=== PATIENT | female | born 1990 | race Caucasian/White ===

== ENCOUNTER 2018-01-18 12:41 | Inpatient (IN) | payer BC ==
[~2018-01-18] VITALS: Ht 165.1 cm; Wt 86.8 kg
[2018-02-21] VITALS (20 sets, daily range): BP systolic 91–128; BP diastolic 46–77; PULSE 60–95; TEMP 97.7–98.8
[2018-02-21 06:45] LABS: BASO % 0.4 % (0.0-2.0); EOS # 0.2 (0.0-0.7); EOS % 2.3 % (0-4.0); GRAN # 5.7 (1.4-6.5); GRAN % 61.8 % (42.2-75.2); HEMOGLOBIN 12.3 g/dl (12.5-16.0); LYMPH # 2.6 (1.2-3.4); LYMPH % 27.9 % (20.0-51.0); MEAN CELL VOLUME 92 fl (80.0-100.0); MEAN CORPUSCULAR HEMOGLOBIN 31 pg (27.0-31.0); MEAN CORPUSCULAR HGB CONC 34 g/dl (33.0-37.0); MEAN PLATELET VOLUME 11.4 fl (7.4-10.4); MONO # 0.7 (0.1-0.6); MONO % 7.1 % (1.7-9.3); PLATELET COUNT 215 K/mm3 (130-400); RED BLOOD COUNT 3.94 M/mm3 (4.10-5.30); REDCELL DISTRIBUTION WIDTH-CV 13.5 % (11.5-14.5)
[2018-02-21 06:54] LABS: HEMATOCRIT 36.1 % (37.0-47.0)
[2018-02-21] MEDS ORDERED: PRENATAL1 TA7 PO (07:01)
[2018-02-21] MEDS ORDERED: CALCIUM PLUS1 TA1 PO (07:02)
[2018-02-21] MEDS ORDERED: SLOW FE142 MG PO (07:04)
[2018-02-21] MEDS ORDERED: MOTRIN 800800 MG/TAB PO (18:41)
[2018-02-21] MEDS ORDERED: PERCOCET 325 MG1 TA2 PO (18:41)
[2018-02-22 06:30] VITALS: BP 116/65; PULSE 84; TEMP 98
[2018-02-22 16:30] VITALS: BP 109/65; PULSE 84; TEMP 98.2
[2018-02-22 21:00] VITALS: BP 124/87; PULSE 92; TEMP 98.1
[2018-02-23 03:00] VITALS: BP 120/80; PULSE 96; TEMP 98
[2018-02-23 08:45] VITALS: BP 135/72; PULSE 93; TEMP 98.1
== END 2018-02-23 11:35 | disposition home or self-care (01) | DRG 765 ==
LOC: LDRO 12:41 → EDSTATUS 14:21 → OB 02-21 05:39 → LDR 02-21 14:22 → OB 02-23 11:35
PROVIDERS: Student in an Organized Health Care Education/Training Program
PROC: 10D00Z1 Extraction of Products of Conception, Low, Open Approach (ICD-10-PCS; principal; 2018-02-21)
DX: O32.1XX0 Maternal care for breech presentation, not applicable or unspecified (principal); O22.43 Hemorrhoids in pregnancy, third trimester; Z3A.39 39 weeks gestation of pregnancy; O99.02 Anemia complicating childbirth; D64.9 Anemia, unspecified; Z37.0 Single live birth; Z88.0 Allergy status to penicillin
CPT/HCPCS: J0171; J0690; J1885; J2270; J2370; J2405; J2550; J2590; J7120

== ENCOUNTER 2020-01-20 08:46 | Inpatient (IN) | payer BC ==
[~2020-01-20] VITALS: Ht 165.1 cm; Wt 87.3 kg
[~2020-01-20 08:46] MED LIST: CALCIUM PLUS1 TA1 PO; MOTRIN 800800 MG/TAB PO; PERCOCET 325 MG1 TA2 PO; PRENATAL1 TA7 PO; SLOW FE142 MG PO
[2020-01-27] VITALS (19 sets, daily range): BP systolic 94–128; BP diastolic 58–86; PULSE 56–89; TEMP 97.5–98.3
--- NOTE | 2020-01-27 05:40 | NUR ---
Pt arrived to unit ambulatory for scheduled section. Pt oriented to room, call light within reach, bed in low and locked position. Pt reports feeling good movement, denies feeling contractions, denies vaginal bleeding, and denies LOF. US and toco explained and applied. Vital signs obtained. 0550 - IV started in left forearm with 1 attempt. Admission labs obtained off IV start. Lactated Ringers infusing to gravity. 0600 - Consents reviewed and signed with patient and spouse.
[2020-01-27 06:31] LABS: BASO % 0.3 % (0.0-2.0); EOS # 0.2 (0.0-0.7); EOS % 2.3 % (0-4.0); GRAN # 4.5 (1.4-6.5); GRAN % 57.9 % (42.2-75.2); HEMOGLOBIN 12.9 g/dl (12.5-16.0); LYMPH # 2.5 (1.2-3.4); LYMPH % 31.6 % (20.0-51.0); MEAN CELL VOLUME 94 fl (80.0-100.0); MEAN CORPUSCULAR HEMOGLOBIN 32 pg (27.0-31.0); MEAN CORPUSCULAR HGB CONC 34 g/dl (33.0-37.0); MEAN PLATELET VOLUME 11.3 fl (7.4-10.4); MONO # 0.6 (0.1-0.6); MONO % 7.5 % (1.7-9.3); PLATELET COUNT 201 K/mm3 (130-400); RED BLOOD COUNT 4.03 M/mm3 (4.10-5.30); REDCELL DISTRIBUTION WIDTH-CV 13.3 % (11.5-14.5)
--- NOTE | 2020-01-27 09:35 | NUR ---
Fundal massage and boggy uterus noted. baseball sized clot expressed followed by small amount of free flow. Fundus firm and no free flow noted following massage. Pericare provided. VS stable. patient sitting up in bed breastsfeeding infant.
[2020-01-28 08:00] VITALS: BP 216/80; PULSE 80; TEMP 98
[2020-01-28] MEDS ORDERED: IBU800 M1 PO (08:42)
[2020-01-28] MEDS ORDERED: PERCOCET 325 MG1 TA2 PO (08:43)
--- NOTE | 2020-01-28 10:05 | NUR ---
Initial visit attempt; Physician with patient, Security Strategist Security Strategist left card of congratulations for the of her daughter and information regarding the availability of spiritual care at [facility].
[2020-01-28 16:10] VITALS: BP 125/71; PULSE 92; TEMP 97.5
[2020-01-28 20:50] VITALS: BP 109/58; PULSE 88; TEMP 98.1
[2020-01-29 07:30] VITALS: BP 123/77; PULSE 84; TEMP 97.7
== END 2020-01-29 11:00 | disposition home or self-care (01) | DRG 788 ==
LOC: OB 01-27 05:31
PROVIDERS: ADMIT Student in an Organized Health Care Education/Training Program
PROC: 10D00Z1 Extraction of Products of Conception, Low, Open Approach (ICD-10-PCS; principal; 2020-01-27)
DX: O34.211 Maternal care for low transverse scar from previous cesarean delivery (principal); Z3A.40 40 weeks gestation of pregnancy; Z37.0 Single live birth; O48.0 Post-term pregnancy
CPT/HCPCS: J0690; J1100; J1885; J2370; J2405; J2590; J7120

== ENCOUNTER 2021-03-26 09:53 | Emergency (ER) | payer BC ==
[~2021-03-26] VITALS: Ht 167.6 cm; Wt 78.6 kg
[~2021-03-26 09:53] MED LIST changes: +IBU800 M1 PO
[2021-03-26 10:04] VITALS: TEMP 98.1
[2021-03-26 10:42] VITALS: BP 115/78; PULSE 76
== END 2021-03-26 10:43 | disposition home or self-care (01) ==
LOC: COL.ER 09:53
DX: O32.1XX0 Maternal care for breech presentation, not applicable or unspecified (principal); O34.82 Maternal care for other abnormalities of pelvic organs, second trimester; N83.209 Unspecified ovarian cyst, unspecified side; O26.892 Other specified pregnancy related conditions, second trimester; R10.31 Right lower quadrant pain; O99.512 Diseases of the respiratory system complicating pregnancy, second trimester; R06.00 Dyspnea, unspecified; Z88.0 Allergy status to penicillin; Z3A.26 26 weeks gestation of pregnancy

== ENCOUNTER 2021-07-08 19:27 | Outpatient (CLI) | payer BC ==
[~2021-07-08] VITALS: Ht 165.1 cm; Wt 83.2 kg
--- NOTE | 2021-07-08 19:45 | NUR ---
1944- patient wheeled onto unit with by her side holding . patient comes from mixing machine feeder, emmett delivery at approximately 1730 with a suspected 3rd degree that needs repair and increased bleeding due to patient unable to void. patient voided in the bathroom upon arrival. patient and spouse orientated to room and changed into clean gown. patient assessment and vitals completed and consents signed. Dr. Zapien notified of patient's arrival. 1954- Dr. Zapien to bedside for repair. Patient and bed set up for repair and repairs began. Dr Zapien noted that the patient at a second degree tear with some small lacerations near the anus. 2014- Repairs finished. Vitals stable, fundus firm. Patient and bed cleaned up and put back together. Ice, peripad and new chux under patient. Dr. Zapien advised ice, 600mg ibuprofen now and recovery for 1 hour and if everything looks good, then patient can go home. Patient and this nurse verbalized understanding with no further questions. 1 hour recovery started.
[2021-07-08 20:15] VITALS: BP 118/73; PULSE 142; TEMP 98.2
[2021-07-08 20:30] VITALS: BP 129/75; PULSE 125
[2021-07-08 20:45] VITALS: BP 109/72; PULSE 121
[2021-07-08 21:00] VITALS: BP 109/70; PULSE 125
[2021-07-08 21:15] VITALS: BP 119/74; PULSE 114
--- NOTE | 2021-07-08 21:15 | NUR ---
2114- 1 HOUR RECOVERY FINISHED. FUNDUS FIRM WITH SCANT LOCHIA NOTED. 2119- THIS RN HELPED PATIENT TO BATHROOM, PATIENT VOIDED OVER 1000ML. WAS CLEANED UP AND STABLE ENOUGH TO GO HOME. DISCUSSED WITH PATIENT. SHE WOULD LIKE TO BREASTFEED ONE MORE TIME AND THEN SHE WILL BE READY TO LEAVE. VERBALIZED UNDERSTANDING AND DISCUSSED GETTING DISCHARGE PAPERWORK READY.
== END 2021-07-08 21:55 | disposition home or self-care (01) ==
LOC: COL.CLI 19:27
DX: S31.41XA Laceration without foreign body of vagina and vulva, initial encounter (principal)